=== PATIENT | female | born 1970 | race Two or more races ===

== ENCOUNTER 2019-03-03 11:08 | Day surgery (SDC) | payer OTHER ==
[2019-03-01 14:32] VITALS: BMI 30.6
--- NOTE | 2019-03-03 11:50 | HP ---
History & Physical Update - History History: No Change - Physical Physical: No Change - Assessment Assessment: No Change - Plan Plan: No Change (Agree with H&P from 02/26/19, CONTRERAS, for hysteroscopy, D&C)
[2019-03-03] MEDS ORDERED: DEXAMETHASONE SOD PHOSPHATE 4 MG/1 ML VIAL ONE ×2 (12:11→14:35)
[2019-03-03] MEDS ORDERED: LIDOCAINE HCL/PF 2% SDV 5ML VIAL ONE ×2 (12:11→14:35)
[2019-03-03] MEDS ORDERED: KETOROLAC TROMETHAMINE 30 MG/1 ML VIAL ONE ×2 (13:17→14:35)
[2019-03-03] MEDS ORDERED: MIDAZOLAM HCL 2 MG/2 ML SINGLE DOSE VIAL ONE (13:17)
[2019-03-03] MEDS ORDERED: PROPOFOL 20 ML ONE (13:17)
[2019-03-03] MEDS ORDERED: ONDANSETRON 4 MG/2 ML VIAL ONE (14:35)
[2019-03-03] MEDS ORDERED: ONDANSETRON 4 MG/2 ML VIAL IVPUSH PRN (15:38)
[2019-03-03] MEDS ORDERED: oxyCODONE HCL 5 MG TABLET PO PRN (15:38)
[2019-03-03 15:42] VITALS: TEMP 97.2
[2019-03-03] MEDS ORDERED: LACTATED RINGERS SOLUTION 1,000 ML IV SCH (15:45)
[2019-03-03 16:31] VITALS: BP 110/66; PULSE 62
--- NOTE | 2019-03-04 17:35 | PATH ---
Surgical Pathology Report Patient Name: CAROLINE SAM Med. Rec. #: [id number] /Age/Gender: 1970 (Age: 49) / F Account: [id number] Location: [facility] SURGICAL Taken: 03/03/2019 Received: 03/03/2019 Reported: 03/04/2019 Physicians: Michelle Dyson M.D. Specimen(s) Received ENDOMETRIAL CURETTINGS Clinical History Abnormal uterine bleeding Final Diagnosis ENDOMETRIAL CURETTINGS, DILATION AND CURETTAGE: STRIPS OF ENDOMETRIAL GLANDS, RARE INACTIVE ENDOMETRIUM, AND SCANT BENIGN CERVICAL TISSUE ADMIXED WITH BLOOD. Comment: Suggest clinical correlation. Electronically Signed Mey Conklin M.D. Gross Description Received in formalin labeled "endometrial curetting," is a 0.9 x 0.6 x 0.2 cm aggregate of red blood clot, possibly containing soft tissue fragments. The formalin is filtered and the specimen is entirely submitted in one cassette. /03/03/2019 saudi/03/03/2019
--- NOTE | 2019-03-10 10:55 | OP ---
Operative Note - Note: Operative Date: 03/03/19 Pre-Operative Diagnosis: Abnormal uterine bleeding Findings: normal uterine cavity, bilateral tubal ostea noted Post-Operative Diagnosis: Same as Pre-op Surgeon: Michelle Dyson Anesthesia: General Specimens Removed: endometrial curettings Estimated Blood Loss (mls): 5 Operative Report Dictated: Yes
--- NOTE | 2019-03-10 12:20 | OP ---
DATE OF OPERATION: 03/03/2019 PREOPERATIVE DIAGNOSIS: Abnormal uterine bleeding. POSTOPERATIVE DIAGNOSIS: Abnormal uterine bleeding. PROCEDURE: Hysteroscopy, dilation and curettage. SURGEON: Michelle Dyson MD ANESTHESIA: General. SPECIMENS REMOVED: Endometrial curettings. FINDINGS: Normal intrauterine cavity, bilateral tubal ostia noted. COUNTS: Sponge and instrument count correct. ESTIMATED BLOOD LOSS: 5 mL. DISPOSITION: Stable to PACU. BRIEF HISTORY AND PROCEDURE: The patient is a 49-year-old female who had been seen in the office with complaints of irregular uterine bleeding. On ultrasound examination, was found to have a possible cervical polyp. The patient was counseled o her options and elected to undergo hysteroscopy, D&C, possible resection of polyp if noted. Consent for the procedure was done in the office. She was then admitted to [facility] outpatient surgery unit on March 03, 2019. Consents were re-confirmed. The patient was taken back to the operating room, placed in the dorsal lithotomy position, given general anesthesia, and prepped and draped in the usual sterile fashion. A hard timeout was performed. A speculum was placed inside the vagina. The anterior lip of the cervix was grasped with a tenaculum and the cervix was dilated to accommodate a diagnostic hysteroscope, which was advanced to the fundus of the uterus. Bilateral tubal ostia were noted. No intracavitary polyps or fibroids were appreciated at this time. Sharp D&C was completed on all 4 haddad of the uterus. Specimens were sent to Pathology for permanent evaluation. A final pass with the hysteroscope revealed no evidence of uterine trauma or perforation. At this point, all instruments were removed from the vagina. Minimal bleeding was noted from the cervical os. The patient was woken up from anesthesia. Sponge and instrument count was reported to be correct. She tolerated procedure, in PACU after the surgery. MICHELLE DYSON DO /[id number]
== END 2019-03-03 17:22 | disposition home or self-care (01) ==
LOC: JASU-SURG 11:08
PROVIDERS: ATTEND Obstetrics & Gynecology
PROC: 0UDB7ZX Extraction of Endometrium, Via Natural or Artificial Opening, Diagnostic (ICD-10-PCS; principal; 2019-03-03 12:30)
PROC: 0UJD8ZZ Inspection of Uterus and Cervix, Via Natural or Artificial Opening Endoscopic (ICD-10-PCS; 2019-03-03 12:30)
DX: N93.8 Other specified abnormal uterine and vaginal bleeding (principal)
CPT/HCPCS: 36415; 84703; 86850; 86900; 86901; 88305-TC; 94760